=== PATIENT | female | born 2000 | race Hispanic/Latino ===

== ENCOUNTER → 2025-04-01 13:41 | Outpatient (CLI) | payer OTHER, SELFPAY ==
--- NOTE | 2025-04-01 13:43 | DI.US.S_ITS ---
PROCEDURE: US OB >= 14 WEEKS FETUS INDICATIONS: Anatomy US OUTSIDE/PRIOR DATING DATA: First dating scan (date and location): 01/21/2025. Estimated date of delivery (CHENTE) from first dating scan: 08/18/2025. TECHNIQUE: Real-time scanning was performed of the fetus, with image documentation and biometric measurements. Endovaginal scanning: Not performed COMPARISON: 02/03/2025 FINDINGS: General: A single living intrauterine gestation is present. Presentation: Vertex. Placenta: Placental position is anterior, without previa. Amniotic fluid index: 16.3 cm, normal range is 5-24 cm. Single deepest vertical pocket is 5.2 cm. heart rate: 157 beats per minute. Maternal cervical canal: 4.1 cm long. Normal lower limit is 2.5 cm. biometrics: Biparietal diameter: 4.7 cm, 20 weeks 1 day Head circumference: 16.8 cm, 19 weeks 3 days Abdominal circumference: 15.8 cm, 21 weeks 0 days Femur length: 3.3 cm, 20 weeks 2 days Clinically estimated gestational age: 19 weeks 5 days Composite gestational age from present scan: 20 weeks 2 days Estimated weight and percentile: 359 g, 87th percentile. Anatomic survey: Neuro: Ventricles are non-dilated at less than 10 mm. Cisterna magna is normal at 3-11 mm. Cerebellum is normal in size and morphology. Nuchal skin fold: Normal at less than 6 mm between 14-21 weeks gestational age. Face: Nose and lips are normal. Facial profile is not well seen. Spine: No evidence for spina bifida. Heart: 4-chambered heart is present, with normal ventricular outflow tracts. Diaphragm: Diaphragm is intact. Stomach: Left-sided stomach is present. Kidneys: No hydronephrosis. Normal is less than 5 mm in 2nd trimester, less than 7 mm in 3rd trimester. Cord: 3-vessel cord has orthotopic insertion. Bladder: Normal in size. Extremities: All 4 extremities identified. IMPRESSION: 1. Castrejon living intrauterine at 20 weeks 2 days based on today's ultrasound. This is concordant with the prior dating. Fetus is in the 87th percentile for weight. 2. Normal placenta and amniotic fluid. 3. facial profile is not well seen. Otherwise normal anatomic survey. -Recommend follow-up OB ultrasound. We strive to produce accurate, complete, and clear reports of imaging services. To assist us in improving patient care, this report was composed using standard report templates and voice recognition software. Therefore, it may contain abnormal punctuation, insertions and/or omissions. Occasional wrong-word or sound-alike substitutions may occur. Though we review the report and make efforts to correct it, we do recommend that the report be read carefully in proper context to recognize any text inaccuracies. Dictated by: Patrice Sarmiento M.D. on 04/02/2025 at 9:16 Approved by: Patrice Sarmiento M.D. on 04/02/2025 at 9:22
== END ==
LOC: US 13:42
PROVIDERS: PCP Family Medicine; Referring Provider Family Medicine; Visit Provider Family Medicine
DX: O09.892 Supervision of other high risk pregnancies, second trimester (principal); Z3A.20 20 weeks gestation of pregnancy
CPT/HCPCS: 76811

== ENCOUNTER → 2025-04-28 07:28 | Outpatient (CLI) | payer OTHER, SELFPAY ==
--- NOTE | 2025-04-28 07:29 | DI.US.S_ITS ---
PROCEDURE: US OB FOLLOW UP INDICATIONS: poorly visualized facial features OUTSIDE/PRIOR DATING DATA: Working CHENTE: 08/21/2025 TECHNIQUE: Real-time scanning was performed of the fetus, with image documentation. Endovaginal scanning: Not per COMPARISON: [facility], OB FOLLOW UP, 02/03/2025, 16:40. FINDINGS: A single living intrauterine gestation is present. Presentation: Vertex. Placenta: Placental position is anterior, without previa. Amniotic fluid index: 16.5 cm, normal range is 5-24 cm. Single deepest vertical pocket is 6.6 cm. heart rate: 150 beats per minute. Maternal cervical canal: 3.6 cm long. Normal lower limit is 2.5 cm. Clinically estimated gestational age: 24 weeks 4 days Normal facial profile seen. Normal nasal bone. IMPRESSION: Single living intrauterine at 24 weeks 4 days, CHENTE of 08/21/2025. Normal facial profile. Dictated by: Joseph Astudillo M.D. on 04/28/2025 at 10:04 Approved by: Joseph Astudillo M.D. on 04/28/2025 at 10:06
== END ==
LOC: US 07:28
PROVIDERS: PCP Family Medicine; Referring Provider Family Medicine; Visit Provider Family Medicine
DX: O09.892 Supervision of other high risk pregnancies, second trimester (principal); Z3A.24 24 weeks gestation of pregnancy
CPT/HCPCS: 76816

== ENCOUNTER → 2025-05-06 09:42 | Outpatient (CLI) | payer OTHER, SELFPAY ==
--- NOTE | 2025-05-06 09:44 | DI.RAD.S_ITS ---
PROCEDURE: FL GUIDED PICC PLACEMENT INDICATIONS: PICC line placement COMPARISON: None. FINDINGS: PICC was placed by the Diagnostic Imaging nurse from the left side. Fluoroscopic spot film demonstrates the tip of PICC projecting to the area of mid superior vena cava. IMPRESSION: Tip of PICC projects to the area of mid superior vena cava. Dictated by: Lucian Escalante M.D. on 05/06/2025 at 11:58 Approved by: Lucian Escalante M.D. on 05/06/2025 at 12:00
== END ==
PROVIDERS: PCP Family Medicine; Referring Provider Family Medicine; Visit Provider Family Medicine
DX: Z45.2 Encounter for adjustment and management of vascular access device (principal); O21.0 Mild hyperemesis gravidarum
CPT/HCPCS: 36573